=== PATIENT | female | born 1990 | race Caucasian/White ===

== ENCOUNTER 2018-12-15 21:06 | Emergency (ER) | payer MEDICAID ==
[~2018-12-15] VITALS: Ht 180.3 cm; Wt 56.7 kg
[2018-12-15] MEDS ORDERED: HYDROMORPHONE 1 MG/1 ML DISP.SYRIN IV ONE (21:30)
[2018-12-15] MEDS ORDERED: ONDANSETRON 4 MG/2 ML VIAL IV ONE (21:30)
[2018-12-15] MEDS ORDERED: IV NORMAL SALINE 1000 ML BAG IV ONE (21:30)
--- NOTE | 2018-12-15 21:45 | NUR ---
Pt. ambulated into ED w/ c/o R side abd/flank pain, denies ESQUIVEL/CP/F/C/D, reports no difficulties urinating, abd. s/r/slightly tender to touch, BS active x 4 quads., pt. states she is recently without a permanent residence and stays w/ friends or w/ boyfriend, Addendum: 12/16/18 at 0140 by ANGELA Homeless resource packet given and signed - pt. refuses assistance at this time,
[2018-12-15 21:53] LABS: BASOPHILS # (AUTO) 0.1 K/uL (0.0-8.0); BASOPHILS % (AUTO) 0.6 % (0.0-2.0); EOSINOPHILS # (AUTO) 0.1 K/uL (0.0-0.7); EOSINOPHILS % (AUTO) 0.7 % (0.0-7.0); HEMATOCRIT 40.3 % (31.2-41.9); HEMOGLOBIN 13.5 g/dL (10.9-14.3); LYMPHOCYTES # (AUTO) 3.1 K/uL (20.0-40.0); MEAN CORPUSCULAR HEMOGLOBIN 30.2 uug (24.7-32.8); MEAN CORPUSCULAR HGB CONC 34 g/dL (32.3-35.6); MONOCYTES # (AUTO) 0.6 K/uL (2.0-10.0); MONOCYTES % (AUTO) 6.2 % (0.0-11.0); NEUTROPHILS # (AUTO) 5.4 K/uL (1.8-8.9); NEUTROPHILS % (AUTO) 58.5 % (38.5-71.5); PLATELET COUNT (AUTO) 315 K/uL (179-408); RED BLOOD CELL COUNT(AUTO) 4.48 MIL/uL (3.63-4.92); WHITE BLOOD COUNT (AUTO) 9.2 K/uL (3.8-11.8)
[2018-12-15 21:54] LABS: *BILIRUBIN,URIN NEGATIVE (NEGATIVE); *CLARITY,URINE SLIGHTLY CLOUDY (CLEAR); *COLOR,URINE YELLOW (YELLOW); *KETONES,URINE NEGATIVE (NEGATIVE); LEUKOCYTE ESTERASE ,URINE NEGATIVE (NEGATIVE); NITRITE, URINE POSITIVE (NEGATIVE); UGLUCOSE NEGATIVE (NEGATIVE)
[2018-12-15 21:59] LABS: *BLOOD, URINE TRACE (NEGATIVE)
[2018-12-15 22:00] LABS: BACTERIA,URINE MANY /HPF (NONE SEEN); MUCUS,URINE MANY /LPF (0-FEW); SQUAMOUS EPITHELIAL CELL,UR FEW /HPF (NONE SEEN)
[2018-12-15 22:02] LABS: CREATININE 0.7 mg/dL (0.6-1.3); POTASSIUM 3.9 mmol/L (3.5-5.1)
[2018-12-15] MEDS ORDERED: HYDROMORPHONE 1 MG/1 ML DISP.SYRIN ONE (22:04)
[2018-12-15] MEDS ORDERED: ONDANSETRON 4 MG/2 ML VIAL ONE (22:04)
[2018-12-15 22:06] LABS: BILIRUBIN,DIRECT 0.1 mg/dL (0.0-0.2); BILIRUBIN,TOTAL 0.3 mg/dL (0.2-1.0); TOTAL PROTEIN, SERUM 7.9 g/dL (6.4-8.2)
[2018-12-15] MEDS ORDERED: LORAZEPAM 0.5 MG TABLET PO ONE (22:15)
[2018-12-15] MEDS ORDERED: LORAZEPAM 1 MG TABLET ONE (22:18)
--- NOTE | 2018-12-15 22:45 | NUR ---
Called Rad. for CT
--- NOTE | 2018-12-15 23:08 | NUR ---
Pt. resting in bed, IV patent - no s/s infiltration/phlebitis
--- NOTE | 2018-12-15 23:11 | NUR ---
Called Rad. for CT
--- NOTE | 2018-12-15 23:17 | NUR ---
Pt. taken off unit by [facility]. Hover 3D for CT
--- NOTE | 2018-12-15 23:31 | NUR ---
Pt. back from CT, IV patent - no s/s infiltration/phlebitis,
[2018-12-16] MEDS ORDERED: CEFTRIAXONE 1 G in IV DEXTROSE 5% 50 ML IV ONE ×2
[2018-12-16] MEDS ORDERED: NITROFURANTOIN/NITROFURAN MAC 100 MG CAPSULE PO ONE
[2018-12-16] MEDS ORDERED: NITROFURANTOIN/NITROFURAN MAC 100 MG CAPSULE ONE (00:08)
[2018-12-16] MEDS ORDERED: CEFTRIAXONE 1 G VIAL ONE (00:08)
--- NOTE | 2018-12-16 00:32 | NUR ---
Called Josy to have CT read - to be redistributed,
--- NOTE | 2018-12-16 01:35 | NUR ---
Patient discharged to home in stable conditon. Written and verbal after care instructions given. Patient verbalizes understanding of instructions. Pt. d/c w/ prescription per MD order, d/c papers signed, all belongings w/ pt., ID/IV removed, ambulated off unit w/ steady gait accompanied by [email or web address]
== END 2018-12-16 01:42 | disposition home or self-care (01) ==
LOC: ER 21:08
DX: N12 Tubulo-interstitial nephritis, not specified as acute or chronic (principal); F12.10 Cannabis abuse, uncomplicated
CPT/HCPCS: 36415; 74176; 80048; 80076; 81001; 83690; 84702; 85025; 96374; 96375; 99284; J0696; J1170; J2405; J7060; A4663; J7030